=== PATIENT | male | born 1945 | race Caucasian/White ===

== ENCOUNTER 2018-06-11 10:56 | Observation (INO) | payer OTHER ==
[~2018-06-11] VITALS: Ht 180.3 cm; Wt 63.3 kg
[2018-06-11] VITALS (10 sets, daily range): BP systolic 83–120; BP diastolic 55–77; PULSE 74–96; TEMP 97.2–98.2
[~2018-06-11 10:56] MED LIST: ACETAMINOPHEN W1 TA6 PO; CELEBREX 200MG200 MG PO; CLARITIN 1010 MG/TAB PO; PREDNISONE1 MG PO; PROAIR; TOPCARE ASPIRI325 MG PO; TYLENOL 325MG325 MG PO; ULTRAM 50MG TAB50 MG PO
[2018-06-11] MEDS ORDERED: PROSCAR 5MG5 MG PO (11:20)
[2018-06-11] MEDS ORDERED: FLOMAX 0.40.4 MG/CAP PO (11:20)
[2018-06-11] MEDS ORDERED: PROAIR HFA0.09 MG/AC IH (11:20)
[2018-06-11] MEDS ORDERED: SINGULAIR 110 MG/TAB PO (11:20)
[2018-06-11] MEDS ORDERED: FLOVENT DI100 MCG/Ac IH (11:21)
--- NOTE | 2018-06-11 13:00 | NUR ---
Patient's belongings (coat) taken to PACU in a belongings bag labeled with his name.
--- NOTE | 2018-06-11 18:54 | NUR ---
report to Karin MENDOZA.
[2018-06-12 00:25] VITALS: BP 100/59; PULSE 77; TEMP 98.2
--- NOTE | 2018-06-12 06:00 | NUR ---
PT HAS HAD CBI RUNNING THROUGHOUT NOC. I&O OF CBI DOCUMENTED. URINE REMAINES A PINK COLOR IN TUBING AND A STRAWBERRY COLOR IN COLLECTION BAG. PT HAS TOLLERATED CBI WELL. AT SHIFT CHANGE- 1900 PT HAD PASSED A MEDIUM SIZED CLOT WITH SOME MODERATE BLEEDING WELL. PT WAS ASSISTED TO GET CLEANED UP, NO OTHER CLOTTING NOTED THIS NOC. PT REMAINED BEDFAST THIS SHIFT. PROVIDED PT WITH SOME PT EDUCATION ABOUT CBI THIS NOC. VITALS REMAINED WNL. PT ONLY NEEDED PRN TYLENOL AT HS FOR SOME MINOR CRAMPING, NO OTHER PAIN MEDICATION NEEDED THIS SHIFT.
--- NOTE | 2018-06-12 07:15 | NUR ---
Report received from KELLY Frazier. Pt in chair at side of bed c/o discomfort to abd and feels nothing is draining in john catheter tubing. Got pt bakc to bed and gently irrigated john using sterile water. Pt tolerated well, only required 1 irrigation and approximately 10 small clots were evacuated. John collected bag reconnected and draining very well. Pt states pressure is releived in bladder and feels much better. Appears anxious. Will continue to monitor.
[2018-06-12 08:30] VITALS: BP 108/62; PULSE 78; TEMP 97.9
--- NOTE | 2018-06-12 09:27 | NUR ---
Assessmnet charted. Pt in bed resting, good output from john catheter, CBI running at moderate rate and urine is pink an clear with no clots noted. Pt feeling well, denies pain. Discussed anxiety and talked to Dr. Mujica for PRN anxiety medication to help with acute anxiety in the hospital. INT'd per Dr. Mujica. Will continue to monitor.
--- NOTE | 2018-06-12 09:57 | NUR ---
LINDA and SW student met with the patient to discuss discharge plan. The patient lives in [place] with his , Eleuterio. The patient does not use any DME but has a cane available if needed. Patient reports independence with ADLs. The patient's PCP is Dr. Recio and he receives his medications from [facility]. The patient has a completed DPOA-HC in his chart that designates his . The patient plans to return home upon discharge. No additional needs at this time.
--- NOTE | 2018-06-12 10:23 | NUR ---
Pt. is currently resting in bed, CBI is running. Pt. is comfortable at this time. is in room with him. I will continue to measure output and keep CBI fluids running. IV was changed to INT on MD rounds, said pt. should probably be ready to go home in the morning. Call light and water within reach.
[2018-06-12 12:30] VITALS: BP 121/58; PULSE 57; TEMP 98.9
--- NOTE | 2018-06-12 14:52 | NUR ---
Initial visit; Patient thanked [employer] for offering God's blessings.
[2018-06-12 16:15] VITALS: BP 110/51; PULSE 80; TEMP 97.5
--- NOTE | 2018-06-12 18:37 | NUR ---
Pt has done well today, has had several bowel movements. C/o pain at tip of meatus when trying to have a BM. Does not want to take any additional medications for pain. at bedside. CBI running at slow rate. Will give bedside shift report to nightshift nurse who will resume care.
--- NOTE | 2018-06-12 19:24 | NUR ---
Pt back to bed after amublating in halls with . No distress noted. Pt denies pain, but states he has intermittent discomfort at catheter insertion site. Gallegos catheter to dependent drainage with continuous bladder irrigation instilling at slow rate. Output is pink and clear. will continue to monitor.
[2018-06-12 20:18] VITALS: BP 115/64; PULSE 73; TEMP 98
[2018-06-13 00:30] VITALS: BP 114/68; PULSE 75; TEMP 98.3
[2018-06-13 03:57] VITALS: BP 121/68; PULSE 80; TEMP 98.1
--- NOTE | 2018-06-13 06:20 | NUR ---
Gallegos catheter primed and pulled. Approximately 200 mL instilled prior to discontinuation. Pt c/o of stinging after discontinuation that subsided. Pt educated on the 6 bottle bottle routine.
[2018-06-13 09:09] VITALS: BP 109/56; PULSE 103; TEMP 97.8
--- NOTE | 2018-06-13 09:33 | NUR ---
Assessment completed, alert/oriented, vital signs stable, did Prime and pull of 3-way john at 0700, reports some burning with urination/ AZO given as ordered, urine is red tinged but no clots observed, encouraging PO fluids and water, heart RRR, lugns CTA/denies any SOA, present in the room, hoping to go home once sees him today
[2018-06-13 11:43] VITALS: BP 99/55; PULSE 95; TEMP 98
[2018-06-13] MEDS ORDERED: PYRIDIUM 100MG100 MG PO (14:02)
--- NOTE | 2018-06-13 14:09 | NUR ---
Discharge orders discussed with patient and his , isntructed to follow up with as previously scheduled on july 01, instructed to avoid highly strenous activity for a couple weeks and to drink plenty of water, explained some blood in urine is to be expected, script for Pyridium given to patient and education provided on meds and TURP, IV removed, he is ambulatory and leaving with his at this time, i personally escorted them out the door
== END 2018-06-13 14:11 | disposition home or self-care (01) ==
LOC: SDCO 10:56 → SURG 15:17
PROVIDERS: ADMIT Urology
DX: N40.1 Benign prostatic hyperplasia with lower urinary tract symptoms (principal); R35.0 Frequency of micturition; R39.11 Hesitancy of micturition; R39.14 Feeling of incomplete bladder emptying; R35.1 Nocturia; R39.12 Poor urinary stream; J45.909 Unspecified asthma, uncomplicated; Z87.891 Personal history of nicotine dependence; K58.9 Irritable bowel syndrome, unspecified; E78.5 Hyperlipidemia, unspecified; M51.36 Other intervertebral disc degeneration, lumbar region; Z79.899 Other long term (current) drug therapy; Z79.82 Long term (current) use of aspirin
CPT/HCPCS: G0378; G0379; J0690; J2250; J2704; J3010; J7120

== ENCOUNTER → 2019-01-05 | Outpatient (CLI) | payer OTHER ==
[~2019-01-05] MED LIST changes: +FLOMAX 0.40.4 MG/CAP PO; +FLOVENT DI100 MCG/Ac IH; +PROAIR HFA0.09 MG/AC IH; +PROSCAR 5MG5 MG PO; +PYRIDIUM 100MG100 MG PO; +SINGULAIR 110 MG/TAB PO
== END ==
LOC: COL.RAD 08:07
DX: R63.4 Abnormal weight loss (principal)

== ENCOUNTER 2021-05-15 10:00 | Outpatient (RCR) | payer MEDICARE, OTHER | END 2021-05-21 | disposition home or self-care (01) | LOC: PT.GENESIS | DX: M77.12 Lateral epicondylitis, left elbow (principal) ==

== ENCOUNTER 2022-12-16 10:45 | Outpatient (RCR) | payer MEDICARE, OTHER | END 2022-12-19 | disposition home or self-care (01) | LOC: PT.GENESIS | DX: M25.512 Pain in left shoulder (principal) ==

== ENCOUNTER 2023-01-01 09:30 | Outpatient (RCR) | payer MEDICARE, OTHER | END 2023-01-18 | disposition home or self-care (01) | LOC: PT.GENESIS | DX: M25.512 Pain in left shoulder (principal) ==

== ENCOUNTER 2023-04-16 13:00 | Outpatient (RCR) | payer MEDICARE, OTHER | END 2023-04-20 | disposition home or self-care (01) | LOC: PT.GENESIS | DX: M25.512 Pain in left shoulder (principal) ==

== ENCOUNTER → 2023-05-21 | Outpatient (RCR) | payer MEDICARE, OTHER | END | disposition home or self-care (01) | LOC: PT.GENESIS | DX: M25.512 Pain in left shoulder (principal) ==